=== PATIENT | male | born 1970 | race Caucasian/White ===

== ENCOUNTER → 2019-04-13 | Outpatient (CLI) | payer BC ==
--- NOTE | 2019-04-13 17:52 | Diagnostic Imaging Report ---
INDICATION: Pain. Three views were obtained. FINDINGS: Alignment is normal. There is no fracture or dislocation. Right lung is clear. Soft tissues are unremarkable. IMPRESSION: No acute fracture or dislocation. Dictated by: Dictated on workstation # [id number]
== END ==
LOC: RAD 16:43
PROVIDERS: ATTEND Internal Medicine
DX: M25.511 Pain in right shoulder (principal)
CPT/HCPCS: 73030